=== PATIENT | male | born 1985 | race African-American/Black ===

== ENCOUNTER 2018-05-26 18:17 | Emergency (ER) | payer SELFPAY ==
[~2018-05-26] VITALS: Ht 190.5 cm; Wt 79.4 kg
[~2018-05-26 18:17] MED LIST: NKHM; PERCOCET 325 MG1 TA3 PO; TYLENOL W/CODEI1 TA2 PO; VICODIN 5/500 505 MG PO
[2018-05-26 18:20] VITALS: BP 134/88
== END 2018-05-26 19:59 | disposition home or self-care (01) ==
LOC: ED 18:17
DX: S61.211A Laceration without foreign body of left index finger without damage to nail, initial encounter (principal); W26.8XXA Contact with other sharp object(s), not elsewhere classified, initial encounter; Y93.89 Activity, other specified; Y92.89 Other specified places as the place of occurrence of the external cause; Y99.8 Other external cause status

== ENCOUNTER → 2020-02-24 | Outpatient (CLI) | payer BC ==
[2020-02-24 13:07] LABS: ALBUMIN 4.2 gm/dl (3.1-4.5); ALKALINE PHOSPHATASE 74 U/L (45-117); BUN 18 mg/dl (7-24); CHLORIDE 103 mmol/L (98-107); CHOLESTEROL 148 mg/dL (<200); CREATININE 1.21 mg/dL (0.70-1.30); HDL CHOLESTEROL 57 mg/dl (40-60); LDL CHOLESTEROL 71 mg/dL (9-159); POTASSIUM 3.2 mmol/L (3.5-5.1); SGOT/AST 24 IU/L (3-35); SGPT/ALT 46 U/L (12-78); SODIUM 139 mmol/L (136-145); TOTAL PROTEIN 7.6 gm/dL (6.4-8.2); TRIGLYCERIDES 102 mg/dl (<150); VLDL CHOLESTEROL 20 mg/dL (6-40)
[2020-02-24 13:09] LABS: HEMATOCRIT 46.2 % (42.0-52.0); MEAN CORPUSCULAR HGB 24.4 pg (27.0-31.0); MEAN PLATELET VOLUME 10.2 fl (9.6-12.3); RED BLOOD COUNT 5.85 10*6/uL (4.50-5.90); RED CELL DISTRI WIDTH 15.7 % (0-14.5); WHITE BLOOD COUNT 14.1 10*3/uL (4.8-10.8)
[2020-02-26 03:12] LABS: TESTOSTERONE FREE, (DIRECT) 6.3 pg/mL (8.7-25.1)
== END | disposition home or self-care (01) ==
LOC: LAB 12:05
PROVIDERS: ATTEND Family Medicine
DX: M47.812 Spondylosis without myelopathy or radiculopathy, cervical region (principal); R53.83 Other fatigue; Z13.220 Encounter for screening for lipoid disorders

== ENCOUNTER 2024-06-07 18:56 | Emergency (ER) | payer BC ==
[~2024-06-07] VITALS: Ht 190.5 cm; Wt 81.6 kg
[2024-06-07 19:16] VITALS: BP 123/67
[2024-06-07] MEDS ORDERED: Bacitracin Zinc 14 GM TUBE T ONE (19:45)
[2024-06-07] MEDS ORDERED: Lidocaine Hydrochloride 2% 10 ML AMP SC ONE (19:45)
== END 2024-06-07 21:16 | disposition home or self-care (01) ==
LOC: ED 18:56
DX: S61.311A Laceration without foreign body of left index finger with damage to nail, initial encounter (principal); F17.200 Nicotine dependence, unspecified, uncomplicated; W26.8XXA Contact with other sharp object(s), not elsewhere classified, initial encounter; Y93.89 Activity, other specified; Y92.89 Other specified places as the place of occurrence of the external cause; Y99.8 Other external cause status

== ENCOUNTER 2025-01-25 17:06 | Emergency (ER) | payer BC, OTHER ==
[~2025-01-25] VITALS: Ht 190.5 cm; Wt 81.6 kg
[2025-01-25 17:21] VITALS: BP 157/71
[2025-01-25] MEDS ORDERED: Albuterol Sulf/Ipratropium 3 ML VIAL NEB ONE (18:05)
[2025-01-25] MEDS ORDERED: PREDNISONE20 M1 PO (19:25)
[2025-01-25] MEDS ORDERED: AZITHROMYCIN 250 MG TAB PO ONE (19:25)
[2025-01-25] MEDS ORDERED: AVPAK AZITHROM250 M1 PO (19:25)
== END 2025-01-25 19:37 | disposition home or self-care (01) ==
LOC: ED 17:06
DX: J40 Bronchitis, not specified as acute or chronic (principal)